=== PATIENT | female | born 1935 | race Caucasian/White ===

== ENCOUNTER → 2017-04-06 | Outpatient (CLI) | payer MEDICARE, BC ==
[~2017-04-06] MED LIST: AMLO2.5T33 PO; ASPI-558 PO; ATEN-36 PO; ENAL20TA76 PO; FEBU40TA PO; P-EP-93 PO; PRAV20TA4 PO; RANI150T7 PO; TORS10TA14 PO; VIT1CAPS5 PO; [UNRECOGNIZED DRUG - CODE] PO
== END ==
LOC: WC.BC 12:57
DX: Z12.31 Encounter for screening mammogram for malignant neoplasm of breast (principal); N64.59 Other signs and symptoms in breast; Z80.3 Family history of malignant neoplasm of breast
CPT/HCPCS: 77063; G0202